=== PATIENT | male | born 1990 | race African-American/Black ===

== ENCOUNTER 2023-03-11 19:27 | Emergency (ER) | payer SELFPAY ==
[2023-03-11 19:30] VITALS: BP 149/93; PULSE 74; RESP 19; TEMP 36.6; O2SAT 98; BMI 29.5
--- NOTE | 2023-03-11 20:01 | EXP.UTC ---
Discharge Plan Referrals Follow up/Referrals: Provider,Referral, MD [Primary Care Provider] - See instructions Activity Restrictions/Add. Instructions Additional Instructions/Restrictions: Staple instructions: ?You have required stitches or [place] today. Please read the following instructions so you know how to care for them: ?1. Keep wound area dry for the first 24 hours. 2?? May clean gently with mild soap and water, after 48 hours to prevent crusting over suture knots. 3. You may shower if your provider gives permission but do not take a bath until the skin is healed.. 4. Never leave a wet dressing or Band-Aid on your stitches as this allows bacteria to reach the area and may cause infection. Band-aids can cause the wound to sweat and not recommended to wear for long periods of time Watch for signs of infection: ? Increasing redness, tenderness or warmth around the suture site ? Unusual swelling around the site ? Appearance of pus around each suture or any red streaks ? Fever If you develop any of the above signs or symptoms of infection, Follow up with Family Physician immediately 5. Suture removal in __7__days 6. Return to [facility] or follow up with family doctor for removal. This can be done by any medical provider dur?ing regular hours on Saturday through Saturday, by appointment. Clinical Impressions Clinical Impression: Laceration Instructions Patient Instructions: DI for Laceration Repair, DI for Laceration Repair -- Lissie Discharge ED Provider[place] Eula Hob[place] [facility] [place] General Stated complaint: AO 410 Laceration to head Mode of Arrival: Ambulatory Source of Information: Patient Limitations: No Limitations Time Seen by Provider: 03/11/23 20:01 Description of Symptoms (Recalled from Triage Doc. by RN): PATIENT STATES HE HIT HIS HEAD ON A SCREW TODAY CAUSING LACERATION TO HEAD. 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 Social History Smoking Status: Unknown if ever smoked alcohol intake: current current occupational status: employed Travel in the last 8 weeks: None ROS Obtained: Yes All systems reviewed & no additional complaints except as documented and Yes Systems reviewed as appropriate & no additional complaints except as documented Constitutional Constitutional: Reports system reviewed and no additional complaints, except as documented and Reports as per HPI Cardiovascular Cardiovascular: Reports system reviewed and no additional complaints, except as documented and Reports as per HPI Gastrointestinal Gastrointestingal: Reports system reviewed and no additional complaints, except as documented and as per HPI Integumentary/Breasts Skin/Breast: Reports system reviewed and no additional complaints, except as documented and Reports as per HPI Comments: laceration to left side of top of head after he hit his head on a bolt that was hanging down and it cut his head Denies LOC Physical Exam General General appearance: alert and in no apparent distress Expanded Head Exam Head image: 1. laceration noted Respiratory Respiratory exam
[2023-03-11 20:26] VITALS: BP 149/93; PULSE 74; RESP 19; TEMP 36.6; O2SAT 98
== END 2023-03-11 20:34 | disposition home or self-care (01) ==
LOC: UTC 19:31
PROVIDERS: Emergency Provider Nurse Practitioner
DX: S01.01XA Laceration without foreign body of scalp, initial encounter (principal); W22.8XXA Striking against or struck by other objects, initial encounter
CPT/HCPCS: 12001; 99204; 99213; 99214; G0463

== ENCOUNTER 2023-03-18 14:52 | Emergency (ER) | payer SELFPAY ==
[2023-03-18 14:54] VITALS: BP 148/86; PULSE 68; RESP 20; TEMP 36.8; O2SAT 98; BMI 30.4
[2023-03-18 15:24] VITALS: BP 148/86; PULSE 68; RESP 20; TEMP 36.8; O2SAT 98; BMI 30.4
[2023-03-18 15:26] VITALS: BP 148/86; PULSE 68; RESP 20; TEMP 36.8; O2SAT 98
== END 2023-03-18 15:25 | disposition home or self-care (01) ==
LOC: UTC 14:58
PROVIDERS: Emergency Provider Nurse Practitioner Family
DX: S01.01XA Laceration without foreign body of scalp, initial encounter (principal); Z48.02 Encounter for removal of sutures